=== PATIENT | female | born 1945 | race African-American/Black ===

== ENCOUNTER 2021-06-03 06:37 | Inpatient (IN) | payer MEDICARE, OTHER ==
[2021-06-03] VITALS (7 sets, daily range): BP systolic 120–147; BP diastolic 53–94
[~2021-06-03] VITALS: Ht 157.5 cm; Wt 54.4 kg
[~2021-06-03 06:37] MED LIST: ASPI-1497 PO; ATOR10TA PO; BENA20TA10 PO; METF500T PO; PRED5TAB48 PO; SITA100T11 PO
[2021-06-03] MEDS ORDERED: GLIP1TAB5 PO (07:37)
[2021-06-03] MEDS ORDERED: BENA1TAB19 PO (07:37)
[2021-06-03] MEDS ORDERED: AMLO10TA4 PO (07:37)
[2021-06-03] MEDS ORDERED: AMLO10TA80 PO (07:37)
[2021-06-03] MEDS ORDERED: METO-385 PO (07:37)
[2021-06-03] MEDS ORDERED: CLOP-31 PO (07:37)
[2021-06-03] MEDS ORDERED: NITROGLYCERIN 50MCG/ML 10ML VIAL (CATH LAB) IV ONE (08:35)
[2021-06-03] MEDS ORDERED: NICARDIPINE 100MCG/ML 10ML VIAL (CATH LAB) IV ONE (08:35)
[2021-06-03] MEDS ORDERED: HEPARIN SODIUM 1,000 UNIT/1ML VIAL IV ONE (08:35)
[2021-06-03] MEDS ORDERED: MIDAZOLAM HCL 2 MG/2 ML VIAL ONE (08:40)
[2021-06-03] MEDS ORDERED: FENTANYL CITRATE/PF 50MCG/ML 2ML VIAL ONE (08:40)
[2021-06-03] MEDS ORDERED: IODIXANOL 320MG/ML 100 ML BOTTLE IV ONE ×2 (08:40→10:08)
[2021-06-03] MEDS ORDERED: LIDOCAINE HCL 1% 30ML VIAL (10MG/ML) ONE (08:40)
[2021-06-03] MEDS ORDERED: IOHEXOL-300 100 ML BOTTLE ONE (09:44)
[2021-06-03] MEDS ORDERED: CLOPIDOGREL 75MG TABLET ONE (09:52)
[2021-06-03] MEDS ORDERED: ASPIRIN 325MG EC TABLET PO ONE (09:52)
[2021-06-03] MEDS ORDERED: ACETAMINOPHEN 325MG TABLET PO PRN (10:15)
[2021-06-03] MEDS ORDERED: ATROPINE SULFATE 1MG/10ML SYR IV PRN (10:15)
[2021-06-03] MEDS ORDERED: ONDANSETRON HCL 4MG/2ML INJ IV PRN (10:15)
[2021-06-03] MEDS ORDERED: HYDRALAZINE 20MG/ML VIAL ONE (10:22)
[2021-06-03] MEDS: BENAZEPRIL 10MG TABLET PO SCH (20:24)
[2021-06-03] MEDS ORDERED: ATORVASTATIN CALCIUM 10MG TABLET PO SCH (21:00)
[2021-06-04] VITALS (8 sets, daily range): BP systolic 123–160; BP diastolic 52–77
[2021-06-04 06:11] LABS: BASOPHILS % 0.9 % (0.0-2.0); EOSINOPHILS % 2.5 % (0.0-5.0); HEMATOCRIT. 35.6 % (36.0-48.0); HEMOGLOBIN. 12.2 g/dL (12.0-16.0); LYMPHOCYTES % 24.8 % (20.0-50.0); MEAN CORPUSCULAR VOLUME 87.6 fL (81.0-99.0); MEAN PLATELET VOLUME 9.8 fl (7.4-10.4); MONOCYTES % 10.8 % (2.0-8.0); PLATELET 153 x1000/uL (130-400); RED BLOOD CELL COUNT 4.07 mill/uL (4.2-5.4); RED CELL DISTRIBUTION WIDTH 13.3 % (11.6-14.6)
[2021-06-04 06:35] LABS: CHLORIDE 108 mEq/L (98-107)
[2021-06-04] MEDS ORDERED: ASPIRIN 325MG TABLET PO SCH (09:00)
[2021-06-04] MEDS ORDERED: CLOPIDOGREL 75MG TABLET PO SCH ×2 (09:00)
[2021-06-04] MEDS ORDERED: METOPROLOL TARTRATE 50MG TABLET PO SCH (09:00)
[2021-06-04] MEDS ORDERED: ASPIRIN 81MG TABLET PO SCH (09:00)
[2021-06-04] MEDS: BENAZEPRIL 10MG TABLET PO SCH (09:31)
== END 2021-06-04 13:30 | disposition home or self-care (01) | DRG 247 ==
LOC: CCL 06:37 → 3WST 06:38
PROVIDERS: ADMIT Specialist; ATTEND Specialist
PROC: 027034Z Dilation of Coronary Artery, One Artery with Drug-eluting Intraluminal Device, Percutaneous Approach (ICD-10-PCS; principal; 2021-06-03)
PROC: B211YZZ Fluoroscopy of Multiple Coronary Arteries using Other Contrast (ICD-10-PCS; 2021-06-03)
PROC: 4A023N7 Measurement of Cardiac Sampling and Pressure, Left Heart, Percutaneous Approach (ICD-10-PCS; 2021-06-03)
DX: I25.10 Atherosclerotic heart disease of native coronary artery without angina pectoris (principal); E11.9 Type 2 diabetes mellitus without complications; I10 Essential (primary) hypertension; Z20.822 Contact with and (suspected) exposure to COVID-19; E78.5 Hyperlipidemia, unspecified; I25.2 Old myocardial infarction; Z79.84 Long term (current) use of oral hypoglycemic drugs; Z79.02 Long term (current) use of antithrombotics/antiplatelets; Z79.899 Other long term (current) drug therapy
CPT/HCPCS: 36415; 80048; 82962; 85025; 87426; 92928; 93005; 93458; C1725; C1760; C1769; C1874; C1887; C1893; C1894; J0360; J1644; J2250; J3010; J3490; Q9967

== ENCOUNTER 2022-03-31 21:28 | Emergency (ER) | payer MEDICARE, OTHER ==
[~2022-03-31] VITALS: Ht 157.5 cm; Wt 42.3 kg
[~2022-03-31 21:28] MED LIST changes: +AMLO10TA4 PO; +AMLO10TA80 PO; +BENA-8 PO; +BENA1TAB19 PO; -BENA20TA10 PO; +CLOP-31 PO; +GLIP1TAB5 PO; +METO-385 PO
[2022-03-31 21:59] VITALS: BP 169/68
== END 2022-04-01 01:30 | disposition left against medical advice (07) ==
LOC: ER 21:28
DX: Z53.21 Procedure and treatment not carried out due to patient leaving prior to being seen by health care provider (principal); I25.10 Atherosclerotic heart disease of native coronary artery without angina pectoris; I10 Essential (primary) hypertension; Z95.820 Peripheral vascular angioplasty status with implants and grafts